=== PATIENT | male | born 1990 | race Two or more races ===

== ENCOUNTER 2016-05-19 21:30 | Emergency (ER) | payer SELFPAY ==
[~2016-05-19] VITALS: Ht 172.7 cm; Wt 84.8 kg
[2016-05-19 21:35] VITALS: BP 134/87
--- NOTE | 2016-05-19 22:47 | PHYS DOC ---
Past Medical History Past Medical History: No Pertinent History Past Surgical History: No Surgical History Alcohol Use: None Drug Use: None Adult General Chief Complaint Chief Complaint: ANXIETY/PANIC ATTACK [place] [employer] HPI Patient is a 25 year old male with no significant medical history who presents today stating he developed "weird feeling". He states he was going to the gym, he states prior to going to the gym he developed an episode of nose bleeding when he was in the shower. He states the episode did not last longer than a couple seconds. He states later he became very anxious. He states his whole body became numb especially his fingers and toes. Patient states he felt weak. He states he did not know what's causing the symptoms so he called 911. Patient states the symptoms have subsided right now. Patient denies any previous history of anxiety. Denies any previous history of panic attacks. He states he works out every day. He currently denies any suicidal or homicidal ideation. Review of Systems Review of Systems Constitutional: Denies fever or chills [] Eyes: Denies change in visual acuity, redness, or eye pain [] HENT: Denies nasal congestion or sore throat [] Respiratory:nose bleeding Cardiovascular: No additional information not addressed in HPI [] GI: Denies abdominal pain, nausea, vomiting, bloody stools or diarrhea [] : Denies dysuria or hematuria [] Musculoskeletal: Denies back pain or joint pain [] Integument: Denies rash or skin lesions [] Neurologic: Denies headache, focal weakness or sensory changes [] Endocrine: Denies polyuria or polydipsia [] Pysch:anxiety Allergies Allergies Allergies Coded Allergies Type Severity Reaction Last Updated Verified No Known Drug Allergies 05/19/16 No Physical Exam Physical Exam Constitutional: Well developed, well nourished, no acute distress, non-toxic appearance. [] HENT: Normocephalic, atraumatic, bilateral external ears normal, oropharynx moist, no oral exudates, nose normal. [] Eyes: PERRLA, EOMI, conjunctiva normal, no discharge. [] Neck: Normal range of motion, no tenderness, supple, no stridor. [] Cardiovascular:Heart rate regular rhythm, no murmur [] Lungs & Thorax: Bilateral breath sounds clear to auscultation [] Abdomen: Bowel sounds normal, soft, no tenderness, no masses, no pulsatile masses. [] Skin: Warm, dry, no erythema, no rash. [] Back: No tenderness, no CVA tenderness. [] Extremities: No tenderness, no cyanosis, no clubbing, ROM intact, no edema. [] Neurologic: Alert and oriented X 3, normal motor function, normal sensory function, no focal deficits noted. [] Psychologic: Affect normal, judgement normal, mood normal. [] Current Patient Data Vital Signs Vital Signs Date Time Temp Pulse Resp B/P Pulse Ox O2 Delivery O2 Flow Rate FiO2 05/19/16 21:35 98.2 54 16 100 Room Air 98.2 EKG EKG [] Radiology/Procedures Radiology/Procedures [] Course & Med Decision Making Course & Med Decision Making Pertinent Labs and Imaging studies reviewed. (See chart for details) This is a 25-year-old male patient with presents today in the ED with epistaxis as well as what sounds like an anxiety attack. He currently states his symptoms have subsided. Vitals on arrival to the ED blood pressure 134/87, heart rate 54 , O2 sats 100% on room air, respirations 16. 22:[address] Ferreira -sinus rate them, heart rate 54, QRS interval 92, no STEMI. Patient is in no distress. We talked at length. I recommended following up with [facility]. He was provided return precautions and discharged in stable condition. Dragon Disclaimer Dragon Disclaimer This electronic medical record was generated, in whole or in part, using a voice recognition dictation system. Departure Departure Impression: Primary Impression: Anxiety Additional Impression: Epistaxis Disposition: 01 HOME, SELF-CARE Condition: STABLE Referrals: NO PCP (PCP) Follow-up with [facility] [phone] Patient Instructions: Anxiety and Panic Attacks, [id number], Nosebleed Additional Instructions: You were seen for symptoms consistent with anxiety. Follow-up with [facility] as needed. Come back to the ED at any point symptoms worsen. Problem Qualifiers EVELIA PAGAN APRN May 19, 2016 22:47
--- NOTE | 2016-05-20 06:17 | EKG ---
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
== END 2016-05-19 22:54 | disposition home or self-care (01) ==
LOC: ER 21:30
DX: R04.0 Epistaxis (principal); F41.9 Anxiety disorder, unspecified; R53.1 Weakness
CPT/HCPCS: 93005; 99283-25